=== PATIENT | male | born 1995 ===

== ENCOUNTER 2020-09-27 23:35 | Observation (INO) | payer OTHER, SELFPAY ==
[2020-09-28 01:53] VITALS: BMI 21.2
[2020-09-28] MEDS ORDERED: Acetaminophen 650 MG Suppository PR PRN (02:36)
[2020-09-28] MEDS ORDERED: Sodium Chloride 0.9% 1,000 ML IV SCH ×2 (02:45)
[2020-09-28] MEDS ORDERED: Morphine 2 MG/ML VIAL SLOW IVP SCH (02:45)
[2020-09-28 03:01] LABS: #Lymphocytes 0.7 thou/uL (1.20-3.40); #Monocytes 0.7 thou/uL (0.11-0.59); #Neutrophils 8.7 thou/uL (1.40-6.50); %Basophils 0.3 % (0.0-1.0); %Eosinophils 0.2 % (0.0-10.0); %Lymphocytes 7.2 % (21.0-51.0); %Monocytes 6.8 % (0.0-10.0); %Neutrophils 85.5 % (42.0-75.0); Hemoglobin 15.8 g/dL (14.0-18.0); Mean Corpuscular HGB CONC 33.9 g/dL (32.0-36.0); Mean Corpuscular Hemoglobin 30.7 pg (27.0-31.0); Mean Corpuscular Volume 90.6 fL (78.0-98.0); Mean Platelet Volume 7.1 fL (7.4-10.4); Platelet Count 205 thou/uL (130-400); RBC Distribution Width 11.3 % (11.5-14.5); Red Blood Cell (RBC) Count 5.16 mill/uL (4.70-6.10); White Blood Cell (WBC) Count 10.2 thou/uL (4.8-10.8)
[2020-09-28 03:18] LABS: Lactic Acid 0.7 mmol/L (0.5-2.2)
[2020-09-28 03:23] LABS: ALT (SGPT) 18 U/L (8-55); AST (SGOT) 18 U/L (5-34); Albumin 4.4 g/dL (3.5-5.0); Alkaline Phosphatase 67 U/L (40-110); Anion Gap 18 mmol/L (10-20); BUN (Urea Nitrogen) 16 mg/dL (8.9-20.6); Bilirubin, Total 1.5 mg/dL (0.2-1.2); Calc. Creatinine Clearance 119 mL/min (70-130); Calcium 9.1 mg/dL (7.8-10.44); Carbon Dioxide 21 mmol/L (22-29); Chloride 102 mmol/L (98-107); Globulin 2.7 g/dL (2.4-3.5); Glucose 92 mg/dL (70-105); Magnesium 1.7 mg/dL (1.6-2.6); Potassium 3.6 mmol/L (3.5-5.1); Protein, Total 7.1 g/dL (6.0-8.3); Sodium 137 mmol/L (136-145)
[2020-09-28] MEDS ORDERED: Magnesium 2 GM/50 ML 2 GM in Premix Bag 1 BAG IVPB SCH (04:00)
[2020-09-28] MEDS: Acetaminophen 325 MG TAB PO PRN ×3 (04:16→19:54)
[2020-09-28] MEDS: Sodium Chloride 0.9% 1,000 ML IV SCH ×3 (05:08→20:18)
[2020-09-28] MEDS: Famotidine/PF 20 mg/2ml Vial SLOW IVP SCH ×2 (07:39→19:50)
[2020-09-28] MEDS ORDERED: VANCOMYCIN 1.25 GM/250 ML BAG 1.25 GM in Premix Bag 1 BAG IVPB SCH (11:00)
[2020-09-28] MEDS: Piperacillin/Tazobactam 3.375 GM in Sodium Chloride 0.9% 100 ML IVPB SCH ×2 (13:21→17:35)
[2020-09-29] MEDS: Sodium Chloride 0.9% 1,000 ML IV SCH ×2 (04:08→09:39)
[2020-09-29 08:37] VITALS: TEMP 98
[2020-09-29] MEDS: Famotidine/PF 20 mg/2ml Vial SLOW IVP SCH (09:41)
[2020-09-29 11:57] VITALS: BP 118/72
== END 2020-09-29 12:30 | disposition home or self-care (01) ==
LOC: SURG B 09-28 00:51 → INTOOBSV 09-28 00:51
PROVIDERS: ADMIT Student in an Organized Health Care Education/Training Program; ATTEND Hospitalist
DX: R10.32 Left lower quadrant pain (principal); A41.9 Sepsis, unspecified organism; Z20.822 Contact with and (suspected) exposure to COVID-19
CPT/HCPCS: 36415; 74019; 80053; 83605; 83690; 83735; 85025; 87040; 93975; 96365; 96375; 96376; G0378; J2270; J2543; J3370; J3475; J3490; S0028